=== PATIENT | male | born 2000 | race Two or more races ===

== ENCOUNTER 2020-11-05 16:07 | Emergency (ER) | payer OTHER ==
[~2020-11-05] VITALS: Ht 170.2 cm; Wt 59.0 kg
[2020-11-05 16:15] VITALS: BP 104/53
[2020-11-05] MEDS ORDERED: IBUPROFEN 600 MG TAB PO ONE (17:30)
== END 2020-11-05 18:08 | disposition home or self-care (01) ==
LOC: ER 16:07
DX: S43.101A Unspecified dislocation of right acromioclavicular joint, initial encounter (principal); W00.0XXA Fall on same level due to ice and snow, initial encounter; Y93.23 Activity, snow (alpine) (downhill) skiing, snowboarding, sledding, tobogganing and snow tubing; Y92.89 Other specified places as the place of occurrence of the external cause; Y99.8 Other external cause status
CPT/HCPCS: 73030